=== PATIENT | female | born 1985 | race Caucasian/White ===

== ENCOUNTER 2017-09-01 13:46 | Inpatient (IN) | payer BC ==
[~2017-09-01] VITALS: Ht 172.7 cm; Wt 72.7 kg
[2017-09-01] VITALS (22 sets, daily range): BP systolic 108–159; BP diastolic 58–102; PULSE 58–88; TEMP 97.6–97.9
[~2017-09-01 13:46] MED LIST: MOTRIN 600600 MG/TAB PO; NORCO 325 MG-51 TAB PO; PRENATAL1 TA7 PO
[2017-09-01] MEDS ORDERED: ZANTAC 150MG T150 MG PO (14:02)
[2017-09-01] MEDS ORDERED: TYLENOL 325MG325 MG PO (14:11)
[2017-09-01 14:22] LABS: BASO # 0.1 (0.0-0.2); BASO % 0.4 % (0.0-2.0); EOS % 0.3 % (0-4.0); GRAN # 10.8 (1.4-6.5); GRAN % 80.7 % (42.2-75.2); HEMATOCRIT 38.9 % (37.0-47.0); HEMOGLOBIN 13.5 g/dl (12.5-16.0); LYMPH # 1.8 (1.2-3.4); LYMPH % 13.3 % (20.0-51.0); MEAN CELL VOLUME 89 fl (80.0-100.0); MEAN CORPUSCULAR HEMOGLOBIN 31 pg (27.0-31.0); MEAN CORPUSCULAR HGB CONC 35 g/dl (33.0-37.0); MEAN PLATELET VOLUME 10.7 fl (7.4-10.4); MONO # 0.6 (0.1-0.6); MONO % 4.6 % (1.7-9.3); PLATELET COUNT 222 K/mm3 (130-400); RED BLOOD COUNT 4.38 M/mm3 (4.10-5.30); REDCELL DISTRIBUTION WIDTH-CV 12.2 % (11.5-14.5)
[2017-09-01] MEDS ORDERED: PERCOCET 325 MG1 TA2 PO (18:03)
[2017-09-01] MEDS ORDERED: MOTRIN 800800 MG/TAB PO (18:03)
[2017-09-02 03:25] VITALS: BP 116/73; PULSE 66; TEMP 98.5
[2017-09-02 07:30] VITALS: BP 128/82; PULSE 63; TEMP 98.3
[2017-09-02 11:58] VITALS: BP 112/80; PULSE 67; TEMP 98.7
[2017-09-02 15:56] VITALS: BP 123/74; PULSE 59; TEMP 97.5
[2017-09-02 20:15] VITALS: BP 122/64; PULSE 72; TEMP 97.7
[2017-09-03 07:48] VITALS: BP 120/84; PULSE 74; TEMP 97.7
== END 2017-09-03 10:40 | disposition home or self-care (01) | DRG 775 ==
LOC: LDRO 13:46 → LDR 14:04 → OB 21:10
PROVIDERS: Obstetrics & Gynecology
PROC: 10E0XZZ Delivery of Products of Conception, External Approach (ICD-10-PCS; principal; 2017-09-01)
PROC: 0KQM0ZZ Repair Perineum Muscle, Open Approach (ICD-10-PCS; 2017-09-01)
DX: O70.1 Second degree perineal laceration during delivery (principal); Z37.0 Single live birth; O36.0930 Maternal care for other rhesus isoimmunization, third trimester, not applicable or unspecified; Z3A.39 39 weeks gestation of pregnancy
CPT/HCPCS: J2405; J2590; J2791; J7120